=== PATIENT | male | born 1960 | race Caucasian/White ===

== ENCOUNTER 2017-03-29 18:58 | Emergency (ER) | payer MEDICAID, OTHER ==
[~2017-03-29] VITALS: Ht 165.1 cm; Wt 72.7 kg
[~2017-03-29 18:58] MED LIST: ALLO100T PO; AMLO-511 PO; COLC0.6T67 PO; HYDR25TA PO; SIMV-260 PO
[2017-03-29] MEDS ORDERED: PredniSONE 20 MG TABLET PO ONE (22:00)
[2017-03-29] MEDS ORDERED: HYDROCODONE/ACETAMINOPHEN 5-325 MG TABLET PO ONE (22:00)
[2017-03-29 22:20] VITALS: BP 131/81
== END 2017-03-29 22:36 | disposition home or self-care (01) ==
LOC: EMS 18:58
DX: M10.9 Gout, unspecified (principal); I10 Essential (primary) hypertension; E78.00 Pure hypercholesterolemia, unspecified; Z88.6 Allergy status to analgesic agent
CPT/HCPCS: 73630; 99284; J7512

== ENCOUNTER 2018-07-30 10:35 | Emergency (ER) | payer OTHER ==
[~2018-07-30] VITALS: Ht 165.1 cm; Wt 70.5 kg
[2018-07-30] MEDS ORDERED: LISI-661 PO (10:45)
[2018-07-30] MEDS ORDERED: COLCHICINE 0.6 MG TABLET PO ONE ×2 (13:45→15:00)
[2018-07-30] MEDS ORDERED: KETOROLAC TROMETHAMINE 30 MG/ML VIAL IM ONE (13:45)
[2018-07-30 15:00] VITALS: BP 129/92
== END 2018-07-30 15:38 | disposition home or self-care (01) ==
LOC: EMS 10:36
DX: M10.9 Gout, unspecified (principal); E78.00 Pure hypercholesterolemia, unspecified; I10 Essential (primary) hypertension; Z88.6 Allergy status to analgesic agent; Z79.899 Other long term (current) drug therapy
CPT/HCPCS: 96372; 99283; J1885

== ENCOUNTER 2019-01-07 09:31 | Emergency (ER) | payer OTHER ==
[~2019-01-07] VITALS: Ht 167.6 cm; Wt 71.8 kg
[~2019-01-07 09:31] MED LIST changes: -HYDR25TA PO; +LISI-661 PO
[2019-01-07 09:32] VITALS: BP 131/91
[2019-01-07] MEDS ORDERED: ATOR20TA86 PO (09:39)
[2019-01-07] MEDS ORDERED: KETOROLAC TROMETHAMINE 30 MG/ML VIAL IM ONE (10:15)
[2019-01-07] MEDS ORDERED: LIDOCAINE 5% TRANSDERMAL PATCH TD ONE (10:15)
[2019-01-07] MEDS ORDERED: ACETAMINOPHEN 500 MG TABLET PO ONE (10:15)
== END 2019-01-07 10:30 | disposition home or self-care (01) ==
LOC: EMS 09:31
DX: S39.012A Strain of muscle, fascia and tendon of lower back, initial encounter (principal); E78.00 Pure hypercholesterolemia, unspecified; I10 Essential (primary) hypertension; Z79.899 Other long term (current) drug therapy; Z88.6 Allergy status to analgesic agent; X58.XXXA Exposure to other specified factors, initial encounter; Y93.01 Activity, walking, marching and hiking; Y92.89 Other specified places as the place of occurrence of the external cause; Y99.8 Other external cause status
CPT/HCPCS: J1885

== ENCOUNTER 2019-03-09 08:36 | Emergency (ER) | payer SELFPAY ==
[~2019-03-09] VITALS: Ht 172.7 cm; Wt 81.8 kg
[~2019-03-09 08:36] MED LIST changes: -AMLO-511 PO; +AMLO5TAB9 PO; +ATOR20TA86 PO; -COLC0.6T67 PO; +COLC0.6T76 PO
[2019-03-09] MEDS ORDERED: CEPHALEXIN MONOHYDRATE 500 MG CAPSULE PO ONE (10:45)
[2019-03-09] MEDS ORDERED: COLCHICINE 0.6 MG TABLET PO ONE (10:45)
[2019-03-09 11:22] LABS: BASOPHILS % (AUTO) 1.1 % (0.0-2.0); EOSINOPHILS % (AUTO) 2.6 % (1.0-6.0); HEMATOCRIT 44.4 % (41-53); HEMOGLOBIN 14.7 g/dL (13.5-17.5); LYMPHOCYTES # (AUTO) 1.7 K/uL (1.0-4.8); LYMPHOCYTES % (AUTO) 15.9 % (22.0-44.0); MEAN CORPUSCULAR HEMOGLOBIN 30.9 pg (26.0-34.0); MEAN CORPUSCULAR VOLUME 93 fL (80-100); MONOCYTES # (AUTO) 0.9 K/uL (0.1-1.0); MONOCYTES % (AUTO) 7.9 % (2.0-9.0); NEUTROPHILS # (AUTO) 7.9 K/uL (1.8-7.7); NEUTROPHILS % (AUTO) 72.5 % (40.0-70.0); PLATELET COUNT (AUTO) 284 K/uL (150-450); RED BLOOD CELL COUNT(AUTO) 4.75 MIL/uL (4.50-5.90); RED CELL DISTRIBUTION WIDTH 13.6 % (11.5-14.5)
[2019-03-09 11:36] LABS: CREATININE 1.41 mg/dL (0.60-1.30); POTASSIUM 3.7 mmol/L (3.5-5.1)
[2019-03-09 11:42] LABS: BILIRUBIN,TOTAL 0.7 mg/dL (0.1-1.0); TOTAL PROTEIN, SERUM 7.7 g/dL (6.4-8.2); URIC ACID 6.4 mg/dL (2.6-7.2)
[2019-03-09] MEDS ORDERED: ACETAMINOPHEN/CODEINE 300-30 MG TABLET PO ONE (11:45)
[2019-03-09 11:55] VITALS: BP 149/90
== END 2019-03-09 12:03 | disposition home or self-care (01) ==
LOC: EMS 08:37
DX: M10.9 Gout, unspecified (principal); M79.671 Pain in right foot; I10 Essential (primary) hypertension; E78.00 Pure hypercholesterolemia, unspecified; Z88.6 Allergy status to analgesic agent; Z79.899 Other long term (current) drug therapy
CPT/HCPCS: 84550